=== PATIENT | male | born 1950 | race African-American/Black ===

== ENCOUNTER 2018-02-22 12:59 | Emergency (ER) | payer BC ==
[2018-02-22] MEDS ORDERED: MECLIZINE HCL 12.5 MG TAB ONE (13:41)
[2018-02-22] MEDS ORDERED: ONDANSETRON 4 MG/2 ML VIAL ONE (13:41)
[2018-02-22] MEDS ORDERED: NA CHLORIDE 0.9% 1,000 ML ONE (13:41)
[2018-02-22 13:48] LABS: Absolute Lymphocytes (CBC) 1.2 K/uL (0.7-4.9); Absolute Monocytes 0.2 K/uL (0.1-1.3); Absolute Neutrophil 2.8 K/uL (1.8-8.0); Basophils % 0.7 % (0-1.3); Eosinophils % 1.7 % (0-4.4); Hematocrit 41.5 % (39.6-49.0); Lymphocytes % 28.1 % (15.3-44.8); MPV 9.2 fL (7.6-11.3); Monocytes % 5.2 % (3.3-12.3); RBC Red Blood Cell Count 4.83 M/uL (4.33-5.43)
[2018-02-22 13:50] LABS: Protime INR 1.02
--- NOTE | 2018-02-22 14:02 | RAD REPORT ---
EXAM DESCRIPTION: CT - Head Brain Wo Cont - 02/22/2018 1:40 pm CLINICAL HISTORY: Dizziness COMPARISON: None. TECHNIQUE: Computed axial tomography of the head was obtained. IV contrast was not requested. All CT scans are performed using dose optimization technique as appropriate and may include automated exposure control or mA/KV adjustment according to patient size. FINDINGS: An intracranial bleed is not seen . The ventricles are normal in caliber. No extra-axial fluid collection is noted. Moderate opacification of the sphenoid sinus. IMPRESSION: No acute intracranial abnormality is seen. If patient's symptoms persist MRI of the bra in would be recommended. Sphenoid sinusitis
--- NOTE | 2018-02-22 14:15 | RAD REPORT ---
EXAM DESCRIPTION: Aparna Single View02/22/2018 1:48 pm CLINICAL HISTORY: cough COMPARISON: none FINDINGS: The lungs appear clear of acute infiltrate. The heart is normal size IMPRESSION: No acute abnormalities displayed
[2018-02-22 14:16] LABS: ALT/SGPT 25 U/L (12-78); AST/SGOT 15 U/L (15-37); Albumin 3.9 g/dL (3.4-5.0); Alkaline Phosphatase 67 U/L (45-117); BUN Blood Urea Nitrogen 16 mg/dL (7-18); Bicarbonate 24 mmol/L (21-32); Bilirubin Direct < 0.1 mg/dL (0-0.2); Bilirubin Total 0.2 mg/dL (0.2-1.0); Glucose Level 149 mg/dL (74-106); Magnesium 2.1 mg/dL (1.8-2.4); NT PRO-BNP 19 pg/mL (<125); Protein, Total 8.4 g/dL (6.4-8.2); Sodium Level 137 mmol/L (136-145); Troponin (Emerg Dept Use Only) < 0.02 ng/mL (0.0-0.045)
--- NOTE | 2018-02-22 14:44 | EKG ---
Test Date: 2018-02-22 Test Time: 13:47:20 Head Of Stock: GENARO MEASUREMENT RESULTS: Intervals: Rate: 59 OH: 132 QRSD: 100 QT: 446 QTc: 441 Revere: P: 68 OH: 132 QRS: 63 T: 36 INTERPRETIVE STATEMENTS: Sinus bradycardia with premature atrial complexes Otherwise normal ECG Compared to ECG 10/08/2005 20:01:06 Atrial premature complex(es) now present Sinus rhythm no longer present Left ventricular hypertrophy no longer present Early repolarization no longer present Electronically Signed On 02-22-18 14:44:03 VIDEO MANAGER by Guzman Caballero
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
== END 2018-02-22 15:24 | disposition home or self-care (01) ==
LOC: ER 12:59
DX: H81.10 Benign paroxysmal vertigo, unspecified ear (principal); J32.3 Chronic sphenoidal sinusitis
CPT/HCPCS: 36415; 70450; 71045; 80048; 80076; 83735; 83880; 84484; 85025; 85610; 93005; 96361; 96374; 99284; J2405; J7030